=== PATIENT | female | born 1985 | race Two or more races ===

== ENCOUNTER 2020-10-30 17:22 | Observation (INO) | payer OTHER ==
[2020-10-30] MEDS: RINGERS SOLUTION,LACTATED 1,000 ML IV SCH ×2 (18:11→19:02)
[2020-10-30 19:15] VITALS: BP 106/64
[2020-10-30] MEDS ORDERED: FERR-82 PO (20:12)
[2020-10-30] MEDS ORDERED: CALC-1038 PO (20:12)
[2020-10-30] MEDS ORDERED: PREN-217 PO (20:12)
[2020-10-30] MEDS ORDERED: SODIUM CHLORIDE 0.9% 1,000 ML IV SCH (21:15)
[2020-10-30 22:28] LABS: COVID AG,FIA SOURCE NASOPHARYNGEAL
[2020-10-31] MEDS: RINGERS SOLUTION,LACTATED 1,000 ML IV SCH (07:54)
[2020-10-31 09:44] LABS: GLUCOMETER DEV NAME(LOC) 4S.; GLUCOSE,POINT OF CARE 59 MG/DL (70-110)
== END 2020-10-31 11:40 | disposition home or self-care (01) ==
LOC: 4S 17:22
PROVIDERS: ADMIT Obstetrics & Gynecology; ATTEND Obstetrics & Gynecology
DX: Z34.93 Encounter for supervision of normal pregnancy, unspecified, third trimester (principal); Z3A.37 37 weeks gestation of pregnancy; Z79.899 Other long term (current) drug therapy
CPT/HCPCS: 36415; 59025; 76805 ×2; 82962; 83036; 87426; 96360; 96361 ×2; 99219 ×2; J7030; J7120 ×2

== ENCOUNTER 2020-11-04 17:00 | Inpatient (IN) | payer OTHER ==
[~2020-11-04] VITALS: Ht 154.9 cm; Wt 77.6 kg
[~2020-11-04 17:00] MED LIST: CALC-1038 PO; FERR-82 PO; PREN-217 PO
[2020-11-04 17:45] VITALS: BP 101/59
[2020-11-04] MEDS ORDERED: METOCLOPRAMIDE HCL 5 MG/ML 2 ML VIAL IVP PRN (17:45)
[2020-11-04] MEDS ORDERED: FentaNYL CITRATE PF 100 MCG/2 ML VIAL IVP PRN (17:45)
[2020-11-04] MEDS ORDERED: OXYTOCIN 30 UNITS/LACT RINGERS 500 ML IV ONE (17:45)
[2020-11-04] MEDS ORDERED: RINGERS SOLUTION,LACTATED 1,000 ML IV PRN (17:45)
[2020-11-04] MEDS ORDERED: CITRIC ACID/SODIUM CITRATE 30 ML SOLUTION UDCUP PO PRN (17:45)
[2020-11-04] MEDS ORDERED: METHYLERGONOVINE MALEATE 0.2 MG/ML VIAL IM PRN (17:45)
[2020-11-04 18:46] LABS: BASOPHILS % (AUTO) 0.4 % (0.0-2.0); EOSINOPHILS % (AUTO) 0.1 % (1.0-6.0); HEMATOCRIT 32.6 % (36-46); HEMOGLOBIN 11.3 g/dL (12.0-16.0); LYMPHOCYTES # (AUTO) 1.9 K/uL (1.0-4.8); MEAN CORPUSCULAR HEMOGLOBIN 30.9 pg (26.0-34.0); MEAN CORPUSCULAR HGB CONC 34.6 G/dL (31.0-37.0); MEAN CORPUSCULAR VOLUME 89 fL (80-100); MONOCYTES # (AUTO) 0.7 K/uL (0.1-1.0); MONOCYTES % (AUTO) 6.3 % (2.0-9.0); NEUTROPHILS # (AUTO) 7.8 K/uL (1.8-7.7); NEUTROPHILS % (AUTO) 75.2 % (40.0-70.0); PLATELET COUNT (AUTO)-OB 214 K/uL (150-450); RED BLOOD CELL COUNT(AUTO) 3.64 MIL/uL (4.00-5.20); RED CELL DISTRIBUTION WIDTH 12.8 % (11.5-14.5)
[2020-11-04] MEDS ORDERED: RINGERS SOLUTION,LACTATED 1,000 ML IV SCH (19:00)
[2020-11-04] MEDS ORDERED: MISOPROSTOL 25 MCG TABLET VG ONE (19:00)
[2020-11-04] MEDS: RINGERS SOLUTION,LACTATED 1,000 ML IV SCH (19:01)
[2020-11-04 19:03] LABS: COVID AG,FIA SOURCE NASOPHARYNGEAL
[2020-11-04] MEDS ORDERED: MISOPROSTOL 25 MCG TABLET PO ONE (19:45)
[2020-11-04] MEDS ORDERED: OXYGEN THERAPY IH SCH (20:00)
[2020-11-05] MEDS ORDERED: MISOPROSTOL 50 MCG TABLET PO ONE ×3 (00:40→09:15)
[2020-11-05] MEDS: RINGERS SOLUTION,LACTATED 1,000 ML IV SCH ×2 (02:48→10:33)
[2020-11-05] MEDS ORDERED: OXYTOCIN 30 UNITS/LACT RINGERS 500 ML IV ONE (08:15)
[2020-11-05] MEDS ORDERED: ROPIVACAINE HCL/PF 0.2% 100 ML ED ONE (11:01)
[2020-11-05] MEDS ORDERED: ONDANSETRON HCL 4 MG/2 ML VIAL IVP PRN (11:30)
[2020-11-05] MEDS ORDERED: NALBUPHINE HCL 10 MG/ML VIAL IVP PRN (11:30)
[2020-11-05] MEDS ORDERED: DiphenhydrAMINE HCL 50 MG/ML VIAL IVP PRN (11:30)
[2020-11-05] MEDS ORDERED: ROPIVACAINE HCL/PF 0.2% 100 ML ED PRN (11:30)
[2020-11-05] MEDS ORDERED: OXYTOCIN 30 UNITS/LACT RINGERS 500 ML IV PRN (14:00)
[2020-11-05] MEDS ORDERED: BENZOCAINE 20%/MENTHOL 56 GM SPRAY CANISTER TP PRN (17:45)
[2020-11-05] MEDS ORDERED: MEASLES/MUMPS/RUBELLA VACCINE, LIVE 0.5 ML VIAL SQ. ONE (17:45)
[2020-11-05] MEDS ORDERED: IBUPROFEN 600 MG TABLET PO PRN (17:45)
[2020-11-05] MEDS ORDERED: RINGERS SOLUTION,LACTATED 1,000 ML IV ONE (17:45)
[2020-11-05] MEDS ORDERED: LANOLIN 7 GM OINTMENT TP PRN (17:45)
[2020-11-05] MEDS ORDERED: GLYCERIN/WITCH HAZEL LEAF 40 PADS JAR TP PRN (17:45)
[2020-11-05] MEDS ORDERED: OxyCODONE HCL/ACETAMINOPHEN 5-325 MG TABLET PO PRN ×2 (17:45)
[2020-11-05] MEDS ORDERED: METHYLERGONOVINE MALEATE 0.2 MG/ML VIAL IM ONE (18:40)
[2020-11-05] MEDS: MAGNESIUM HYDROXIDE SUSPENSION 30 ML UDCUP PO SCH (22:27)
[2020-11-06] MEDS: MAGNESIUM HYDROXIDE SUSPENSION 30 ML UDCUP PO SCH (09:35)
[2020-11-06] MEDS ORDERED: IBUP-2071 PO (14:57)
[2020-11-06] MEDS ORDERED: FERR-89 PO (14:58)
[2020-11-06] MEDS ORDERED: DOCU-275 PO (14:59)
== END 2020-11-06 17:35 | disposition home or self-care (01) | DRG 807 ==
LOC: OBSVTOIN 17:00 → 4S 17:00
PROVIDERS: ADMIT Obstetrics & Gynecology; ATTEND Obstetrics & Gynecology
PROC: 10E0XZZ Delivery of Products of Conception, External Approach (ICD-10-PCS; principal; 2020-11-05)
PROC: 10907ZC Drainage of Amniotic Fluid, Therapeutic from Products of Conception, Via Natural or Artificial Opening (ICD-10-PCS; 2020-11-05)
PROC: 3E0R3BZ Introduction of Anesthetic Agent into Spinal Canal, Percutaneous Approach (ICD-10-PCS; 2020-11-05)
PROC: 00HU33Z Insertion of Infusion Device into Spinal Canal, Percutaneous Approach (ICD-10-PCS; 2020-11-05)
DX: O41.03X0 Oligohydramnios, third trimester, not applicable or unspecified (principal); Z37.0 Single live birth; Z3A.38 38 weeks gestation of pregnancy; Z20.822 Contact with and (suspected) exposure to COVID-19
CPT/HCPCS: 85025; 86850; 86900; 86901; 87426; A9575; J2210; J2590; J2795; J7120